=== PATIENT | male | born 1975 | race Two or more races ===

== ENCOUNTER 2018-12-28 18:14 | Emergency (ER) | payer MEDICAID ==
[~2018-12-28] VITALS: Ht 167.6 cm; Wt 79.4 kg
--- NOTE | 2018-12-28 19:02 | NUR ---
PATIENT WAS SEEN BY . [facility] PENDING....
--- NOTE | 2018-12-28 19:05 | NUR ---
HANDOFF REPORT GIVEN TO EITAN ARMENTA
--- NOTE | 2018-12-28 19:10 | NUR ---
Hand off received from outgoing day shift RN chemistry technical officer at bedside. pt able to tolerate xray Pt NAD, in bed, bed in lowest position. Siderails up x 2. Call light within reach. Will continue to monitor accordingly
--- NOTE | 2018-12-28 20:05 | NUR ---
Patient discharged to home in stable conditon. Written and verbal after care instructions given. Patient verbalizes understanding of instructions. Pt ambulatory with stable gait. all belongings with patient
[2018-12-28 20:39] VITALS: BP 128/70
== END 2018-12-28 20:05 | disposition home or self-care (01) ==
LOC: ER 18:14
DX: S16.1XXA Strain of muscle, fascia and tendon at neck level, initial encounter (principal); M54.5 Low back pain; M25.512 Pain in left shoulder; V43.52XA Car driver injured in collision with other type car in traffic accident, initial encounter; Y93.89 Activity, other specified; Y92.89 Other specified places as the place of occurrence of the external cause; Y99.8 Other external cause status
CPT/HCPCS: 72100; 73030; A4663